=== PATIENT | male | born 1975 | race Caucasian/White ===

== ENCOUNTER 2017-01-23 09:48 | Emergency (ER) | payer OTHER ==
[2017-01-23 11:34] LABS: BASOPHIL 1.1 % (0-2); EOSINOPHIL 4.3 % (0-5); HCT 45.7 % (42.0-52.0); HGB 15.9 g/dl (13.2-18.0); LYMPHOCYTE 26.1 % (15-48); MCH 31.5 pg (25.0-31.0); MCHC 34.8 g/dL (32.0-36.0); MCV 90.7 fL (78.0-100.0); MONOCYTE 9.6 % (0-12); MPV 11.3 fL (6.0-9.5); NEUTROPHIL 58.9 % (41-80); PLT 251 K/uL (150-400); RBC 5.04 M/uL (4.70-6.00); RDW 13.2 % (11.5-14.0); WBC 7.5 K/uL (4.0-10.5)
== END 2017-01-23 11:50 | disposition home or self-care (01) ==
LOC: FER 09:48
PROVIDERS: Nurse Practitioner Family
DX: J06.9 Acute upper respiratory infection, unspecified (principal); J30.2 Other seasonal allergic rhinitis
CPT/HCPCS: 36415; 71020; 85025; 99283

== ENCOUNTER 2021-10-18 07:55 | Emergency (ER) | payer OTHER ==
[~2021-10-18 07:55] MED LIST: FLONASE ALLER15.8 ML; PROAIR HFA8.5 GM INH; TRIAMCINOLONE 080 GM TOP
[2021-10-18 15:14] LABS: CORONAVIRUS 2019 SARS-COV-2 POSITIVE (NEGATIVE); INFLUENZA A NAA NEGATIVE (NEGATIVE)
[2021-10-18] MEDS ORDERED: VENTOLIN HFA IN18 GM INH (15:32)
[2021-10-18] MEDS ORDERED: MEDROL 4MG DOSEP4 MG PO (15:32)
== END 2021-10-18 15:38 | disposition home or self-care (01) ==
LOC: FER 07:55
PROVIDERS: Nurse Practitioner Family
DX: U07.1 COVID-19 (principal)
CPT/HCPCS: 71045; U0002